=== PATIENT | female | born 2000 | race Caucasian/White ===

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

== ENCOUNTER → 2018-02-03 | Outpatient (CLI) | payer OTHER, BC | LOC: M LRY 10:00 | DX: R06.02 Shortness of breath (principal) | CPT/HCPCS: 71046 ==

== ENCOUNTER → 2018-10-06 | Outpatient (REF) | payer OTHER ==
[~2018-10-06] MED LIST: NAPR-837 PO; TRI-1TAB24
== END ==
LOC: M SFHCLERA 10:02
PROVIDERS: ATTEND Nurse Practitioner Family
DX: J02.9 Acute pharyngitis, unspecified (principal)

== ENCOUNTER 2019-09-17 20:34 | Emergency (ER) | payer BC, OTHER ==
[~2019-09-17] VITALS: Ht 182.9 cm; Wt 113.1 kg
[2019-09-17] MEDS ORDERED: PANTOPRAZOLE 40MG VIAL (C9113 PER 1) IV ONE (21:30)
[2019-09-17] MEDS ORDERED: NS 1,000 ML IV ONE (21:30)
[2019-09-17] MEDS ORDERED: ONDANSETRON 4MG/2ML VIAL IV ONE (21:30)
[2019-09-17 22:29] LABS: HEMATOCRIT 47.3 % (36.0-47.0); HEMOGLOBIN 16.2 g/dl (12.0-15.5); MEAN CORPUSCULAR HEMOGLOBIN 29.6 pg (27.0-33.0); MEAN CORPUSCULAR HGB CONC 34.2 g/dl (32.0-36.5); MEAN CORPUSCULAR VOLUME 86.5 fl (80.0-96.0); PLATELET COUNT, AUTOMATED 303 10^3/uL (150-450); RED BLOOD COUNT 5.47 10^6/uL (4.00-5.40); WHITE BLOOD COUNT 8.3 10^3/uL (4.0-10.0)
[2019-09-17 22:47] LABS: HCG, SERUM QUALITATIVE NEGATIVE (NEGATIVE)
[2019-09-17 22:52] LABS: ATYPICAL LYMPH 4 % (0-5); BASOPHILS 2 % (0-1); EOSINOPHILS 14 % (0-3); LYMPHOCYTES 33 % (16-44); MONOCYTES 9 % (0-5); NEUTROPHILS 38 % (28-66); PLATELET ESTIMATE NORMAL (NORMAL)
[2019-09-17 22:53] LABS: ALBUMIN 3.7 GM/DL (3.2-5.2); ALT/SGPT 44 U/L (12-78); AMYLASE 39 U/L (25-115); BILIRUBIN,DIRECT < 0.1 MG/DL (0.0-0.2); BILIRUBIN,TOTAL 0.2 MG/DL (0.2-1.0); BLOOD UREA NITROGEN 12 MG/DL (7-18); CALCIUM LEVEL 9.1 MG/DL (8.5-10.1); CARBON DIOXIDE LEVEL 25 MEQ/L (21-32); CHLORIDE LEVEL 109 MEQ/L (98-107); CREATININE FOR GFR 0.96 MG/DL (0.55-1.30); GLUCOSE, FASTING 91 MG/DL (70-100); LIPASE 75 U/L (73-393); POTASSIUM SERUM 4.2 MEQ/L (3.5-5.1); SODIUM LEVEL 140 MEQ/L (136-145); TOTAL PROTEIN 7.1 GM/DL (6.4-8.2)
--- NOTE | 2019-09-17 23:28 | REPVR ---
PROCEDURE INFORMATION: Exam: CT Abdomen And Pelvis Without Contrast Exam date and time: 09/17/2019 10:53 PM Age: 18 years old Clinical indication: Abdominal pain; Generalized; Additional info: Abd pain TECHNIQUE: Imaging protocol: Computed tomography of the abdomen and pelvis without contrast. Radiation optimization: All CT scans at this facility use at least one of these dose optimization techniques: automated exposure control; mA and/or kV adjustment per patient size (includes targeted exams where dose is matched to clinical indication); or iterative reconstruction. COMPARISON: No relevant prior studies available. FINDINGS: Liver: Normal. No mass. Gallbladder and bile ducts: Normal. No calcified stones. No ductal dilation. Pancreas: Normal. No ductal dilation. Spleen: Normal. No splenomegaly. Adrenals: Normal. No mass. Kidneys and ureters: Normal. No hydronephrosis. Stomach and bowel: Unremarkable. No obstruction. No mucosal thickening. Appendix: No evidence of appendicitis. Intraperitoneal space: Unremarkable. No free air. No significant fluid collection. Vasculature: Unremarkable. No abdominal aortic aneurysm. Lymph nodes: Numerous small mesenteric lymph nodes, largest measuring approximately 1 cm suggesting mesenteric adenitis. Bladder: Unremarkable as visualized. Reproductive: 2 cm incidental right ovarian cyst, per size and patient's age, follow-up not necessary. Bones/joints: Small L5-S1 disc protrusion. Soft tissues: Unremarkable. IMPRESSION: Numerous small mesenteric lymph nodes, largest measuring approximately 1 cm suggesting mesenteric adenitis. Electronically signed by: Patrick Feliciano On 09/17/2019 23:28:20 PM
[2019-09-17] MEDS ORDERED: KETOROLAC 30 MG/ML 1ML VIAL IV ONE (23:45)
[2019-09-17] MEDS ORDERED: IBUP-1022 PO (23:46)
[2019-09-18 00:13] VITALS: BP 126/71
== END 2019-09-18 00:15 | disposition home or self-care (01) ==
LOC: M ED 20:34
DX: I88.0 Nonspecific mesenteric lymphadenitis (principal)
CPT/HCPCS: 74176; 80048; 80076; 81001; 82150; 83690; 84703; 85025; 96361; 96374; 96375; 99284; C9113; J2405

== ENCOUNTER 2020-09-27 17:26 | Emergency (ER) | payer BC, OTHER ==
[~2020-09-27] VITALS: Ht 182.9 cm; Wt 117.3 kg
[~2020-09-27 17:26] MED LIST changes: +IBUP-1022 PO
--- NOTE | 2020-09-27 22:11 | REPVR ---
PROCEDURE INFORMATION: Exam: US Duplex Right Upper Extremity Veins, Limited Exam date and time: 09/27/2020 9:48 PM Age: 19 years old Clinical indication: Pain; Arm, upper; Right TECHNIQUE: Imaging protocol: Real-time Duplex ultrasound of the Right Upper Extremity with 2-D lin scale, color Doppler flow and spectral waveform analysis with image documentation. Limited exam focused on the right upper extremity veins. COMPARISON: No relevant prior studies available. FINDINGS: Right deep veins: Unremarkable. Axillary and brachial veins are patent throughout without thrombus. Normal Doppler waveforms. Normal compressibility and/or augmentation response. Visualized internal jugular and subclavian veins are patent. Right superficial veins: Unremarkable. Visualized cephalic and basilic veins are patent without thrombus. Soft tissues: Unremarkable. IMPRESSION: No evidence of deep vein thrombosis. Electronically signed by: Juwan Morgan On 09/27/2020 22:11:31 PM
[2020-09-27 22:28] VITALS: BP 134/74
== END 2020-09-27 22:30 | disposition home or self-care (01) ==
LOC: M ED 17:26
DX: M79.601 Pain in right arm (principal); F17.200 Nicotine dependence, unspecified, uncomplicated

== ENCOUNTER → 2022-03-12 | Outpatient (CLI) | payer BC, OTHER | LOC: M CARPUL 14:26 | PROVIDERS: ATTEND Family Medicine | DX: J45.20 Mild intermittent asthma, uncomplicated (principal) ==

== ENCOUNTER → 2024-06-12 | Outpatient (CLI) | payer BC ==
[2024-06-12 14:06] LABS: HEMATOCRIT 41.1 % (36.0-47.0); HEMOGLOBIN 13.7 g/dl (12.0-15.5); MEAN CORPUSCULAR HEMOGLOBIN 30.7 pg (27.0-33.0); MEAN CORPUSCULAR HGB CONC 33.3 g/dl (32.0-36.5); MEAN CORPUSCULAR VOLUME 92.2 fl (80.0-96.0); PLATELET COUNT, AUTOMATED 286 10^3/uL (150-450); RED BLOOD COUNT 4.46 10^6/uL (4.00-5.40)
[2024-06-12 14:32] LABS: HIV 1&2 SCREEN NEGATIVE (NEGATIVE)
[2024-06-12 15:02] LABS: Trichomonas vaginalis (AMP) NOT DETECTED (NEGATIVE)
[2024-06-12 15:26] LABS: GC DNA AMPLIFICATION NEGATIVE (NEGATIVE)
== END ==
LOC: M PLALAB 10:33
PROVIDERS: ATTEND Advanced Practice Midwife
DX: Z34.01 Encounter for supervision of normal first pregnancy, first trimester (principal)

== ENCOUNTER → 2024-06-12 | Outpatient (CLI) | payer BC ==
[2024-06-12 13:58] LABS: BASO # 0.1 10^3/uL (0.0-0.2); BASO % 0.7 % (0.0-1.0); EOS # 0.2 10^3/uL (0.0-0.5); HEMATOCRIT 40.8 % (36.0-47.0); HEMOGLOBIN 13.7 g/dl (12.0-15.5); LYMPH # 2.1 10^3/uL (1.5-5.0); LYMPH % 26.5 % (24.0-44.0); MEAN CORPUSCULAR HEMOGLOBIN 31.1 pg (27.0-33.0); MEAN CORPUSCULAR HGB CONC 33.6 g/dl (32.0-36.5); MEAN CORPUSCULAR VOLUME 92.5 fl (80.0-96.0); MONO # 0.6 10^3/uL (0.0-0.8); MONO % 7.2 % (2.0-8.0); NEUTROPHILS # 5.1 10^3/uL (1.5-8.5); PLATELET COUNT, AUTOMATED 283 10^3/uL (150-450); RED BLOOD COUNT 4.41 10^6/uL (4.00-5.40); WHITE BLOOD COUNT 8.1 10^3/uL (4.0-10.0)
[2024-06-12 14:23] LABS: ALBUMIN 3.5 G/DL (3.2-5.2); ALKALINE PHOSPHATASE 41 U/L (35-104); ALT/SGPT 27 U/L (7.0-40); AST/SGOT 13 U/L (<34); BILIRUBIN,TOTAL 0.3 MG/DL (0.3-1.2); BLOOD UREA NITROGEN 14 MG/DL (9-23); CALCIUM LEVEL 9.5 MG/DL (8.5-10.1); CARBON DIOXIDE LEVEL 26 MMOL/L (20-31); CHLORIDE LEVEL 108 MMOL/L (98-107); CREATININE FOR GFR 0.78 MG/DL (0.55-1.30); GLOMERULAR FILTRATION RATE > 60.0 (>60); GLUCOSE, FASTING 77 MG/DL (60-100); POTASSIUM SERUM 4.4 MMOL/L (3.5-5.1); SODIUM LEVEL 140 MMOL/L (136-145); TOTAL PROTEIN 6.4 G/DL (5.7-8.2)
[2024-06-12 14:25] LABS: FREE T4 1.14 NG/DL (0.89-1.76); THYROID STIMULATING HORMONE 2.878 uIU/ML (0.55-4.78)
== END ==
LOC: M PLALAB 10:30
DX: Z32.01 Encounter for pregnancy test, result positive (principal); J45.20 Mild intermittent asthma, uncomplicated; Z76.89 Persons encountering health services in other specified circumstances

== ENCOUNTER → 2024-08-28 | Outpatient (CLI) | payer BC | LOC: M WHC 10:27 | PROVIDERS: ATTEND Specialist | DX: Z34.02 Encounter for supervision of normal first pregnancy, second trimester (principal) ==

== ENCOUNTER → 2024-12-04 | Outpatient (CLI) | payer MEDICAID | LOC: M WHC 10:28 | PROVIDERS: ATTEND Advanced Practice Midwife | DX: O26.843 Uterine size-date discrepancy, third trimester (principal); O40.3XX0 Polyhydramnios, third trimester, not applicable or unspecified; Z3A.37 37 weeks gestation of pregnancy ==

== ENCOUNTER → 2024-12-18 | Outpatient (CLI) | payer MEDICAID ==
[~2024-12-18] MED LIST changes: +FAMO40TA3 PO; -IBUP-1022 PO; +IBUP600T42 PO; +IBUP80TA PO; +ONDA-282 PO; +TUMS500C PO
== END ==
LOC: M WHC 08:47 → MERGE 08:47
PROVIDERS: ATTEND Obstetrics & Gynecology
DX: O40.3XX0 Polyhydramnios, third trimester, not applicable or unspecified (principal); Z3A.36 36 weeks gestation of pregnancy

== ENCOUNTER → 2024-12-18 | Outpatient (REF) | payer MEDICAID ==
[~2024-12-18] MED LIST changes: -FAMO40TA3 PO; -TUMS500C PO
== END ==
LOC: M SFHCWAGY 12:39
PROVIDERS: ATTEND Obstetrics & Gynecology
DX: Z34.80 Encounter for supervision of other normal pregnancy, unspecified trimester (principal)

== ENCOUNTER 2024-12-24 17:23 | Outpatient (CLI) | payer MEDICAID ==
[~2024-12-24] VITALS: Ht 182.9 cm; Wt 147.6 kg
[2024-12-24] MEDS ORDERED: TUMS500C PO (17:48)
[2024-12-24 17:52] VITALS: BP 132/72
[2024-12-24] MEDS: FAMOTIDINE 20 MG TAB PO ONE (18:57)
[2024-12-24 19:44] LABS: PLATELET COUNT, AUTOMATED 232 10^3/uL (150-450)
[2024-12-24] MEDS ORDERED: FAMO40TA3 PO (19:52)
[2024-12-24 20:05] LABS: ALT/SGPT 12 U/L (7.0-40); AST/SGOT 12 U/L (<34); CALCIUM LEVEL 9.6 MG/DL (8.5-10.1); CARBON DIOXIDE LEVEL 24 MMOL/L (20-31); CHLORIDE LEVEL 107 MMOL/L (98-107); CREATININE FOR GFR 0.90 MG/DL (0.55-1.30); GLOMERULAR FILTRATION RATE > 90.0 (>60); POTASSIUM SERUM 4.4 MMOL/L (3.5-5.1); SODIUM LEVEL 141 MMOL/L (136-145)
== END 2024-12-24 20:30 | disposition home or self-care (01) ==
LOC: M LDO 17:23
PROVIDERS: ATTEND Obstetrics & Gynecology
DX: O47.03 False labor before 37 completed weeks of gestation, third trimester (principal); O99.513 Diseases of the respiratory system complicating pregnancy, third trimester; O40.3XX0 Polyhydramnios, third trimester, not applicable or unspecified; J45.909 Unspecified asthma, uncomplicated; Z3A.36 36 weeks gestation of pregnancy
CPT/HCPCS: 36415; 59025; 80053; 82150; 83690; 85027; G0463